=== PATIENT | female | born 1975 | race Caucasian/White ===

== ENCOUNTER 2019-01-30 19:00 | Emergency (ER) | payer MEDICAID, MEDICARE, OTHER ==
[~2019-01-30] VITALS: Ht 144.8 cm; Wt 68.0 kg
[2019-01-30] MEDS ORDERED: MORPHINE SULFATE 4 MG/ML SYR/VIAL IV ONE (20:00)
[2019-01-30] MEDS ORDERED: ONDANSETRON HCL 4 MG/2 ML VIAL IV ONE (20:00)
[2019-01-30 22:00] VITALS: BP 129/107
== END 2019-01-30 21:46 | disposition home or self-care (01) ==
LOC: ER 19:03
DX: S70.01XA Contusion of right hip, initial encounter (principal); W07.XXXA Fall from chair, initial encounter; Y93.89 Activity, other specified; Y92.89 Other specified places as the place of occurrence of the external cause; Y99.8 Other external cause status
CPT/HCPCS: 73502; 96374; 96375; 99283; J2270; J2405

== ENCOUNTER 2019-02-14 15:25 | Emergency (ER) | payer MEDICAID, MEDICARE ==
[~2019-02-14] VITALS: Ht 149.9 cm; Wt 68.0 kg
[2019-02-14 15:55] VITALS: BP 150/87
== END 2019-02-14 17:43 | disposition home or self-care (01) ==
LOC: ER 15:25
DX: S76.011A Strain of muscle, fascia and tendon of right hip, initial encounter (principal); G89.29 Other chronic pain; M25.551 Pain in right hip; W19.XXXA Unspecified fall, initial encounter; Y93.89 Activity, other specified; Y92.89 Other specified places as the place of occurrence of the external cause; Y99.8 Other external cause status

== ENCOUNTER 2020-03-27 13:25 | Emergency (ER) | payer BC, MEDICAID, MEDICARE ==
[~2020-03-27] VITALS: Ht 152.4 cm; Wt 65.8 kg
[2020-03-27 13:32] VITALS: BP 146/99
== END 2020-03-27 17:43 | disposition left against medical advice (07) ==
LOC: EDBD 13:25 → ER 13:25
DX: R00.2 Palpitations (principal); Z53.21 Procedure and treatment not carried out due to patient leaving prior to being seen by health care provider

== ENCOUNTER 2020-03-29 14:58 | Emergency (ER) | payer BC ==
[~2020-03-29] VITALS: Ht 144.8 cm; Wt 68.0 kg
[2020-03-29 15:37] VITALS: BP 153/94
[2020-03-29] MEDS ORDERED: SODIUM CHLORIDE 0.9% 1,000 ML IV ONE (19:15)
[2020-03-29 20:15] LABS: Basophils # (auto) 0.1 10 ^3/uL (0-0.2); Hemoglobin 12.1 g/dL (12.2-16.2); Monocytes # (auto) 0.4 10 ^3/uL (0-1.3); Neutrophils # (auto) 4.8 10 ^3/uL (1.6-8.6); Nucleated Red Blood Cells % 0.1 %
[2020-03-29 20:18] LABS: Basophils % (auto) 0.8 % (0.0-2.0); Eosinophils # (auto) 0.1 10 ^3/uL (0-0.8); Eosinophils % (auto) 1.7 % (0.0-7.0); Hematocrit 36.9 % (36.0-46.0); Lymphocytes # (auto) 2.5 10 ^3/uL (0.4-5.4); Lymphocytes % (auto) 31.2 % (10.0-50.0); Mean Corpuscular Hgb Conc. 32.9 g/dL (32.0-36.0); Mean Corpuscular Volume 82.2 fL (80.0-100.0); Monocytes % (auto) 5.4 % (0.0-12.0); Neutrophils % (auto) 60.9 % (37.0-80.0); Platelet Count (auto) 336 10^3/uL (140-450); Red Blood Cells 4.49 10^6/uL (4.0-5.20); White Blood Cell 7.9 10^3/uL (4.4-10.8)
[2020-03-29 20:25] LABS: Potassium 3.5 mmol/L (3.5-5.1)
[2020-03-29 20:34] LABS: Albumin 3.7 g/dL (3.4-5.0); BUN/Creatinine Ratio 14.1; Bilirubin, Total 0.3 mg/dL (0.2-1.0); Calcium 8.8 mg/dL (8.5-10.1); Magnesium 2.4 mg/dL (1.6-2.6); Total Protein 7.6 g/dL (6.4-8.2)
== END 2020-03-30 01:09 | disposition home or self-care (01) ==
LOC: ER 14:58
DX: I47.1 Supraventricular tachycardia (principal); F17.210 Nicotine dependence, cigarettes, uncomplicated
CPT/HCPCS: 36415; 71045; 80053; 83735; 83880; 84484; 85025; 93005